=== PATIENT | female | born 1985 | race Caucasian/White ===

== ENCOUNTER 2019-01-31 13:37 | Emergency (ER) | payer MEDICAID ==
[~2019-01-31] VITALS: Ht 167.6 cm; Wt 86.2 kg
[2019-01-31] MEDS ORDERED: HYDROCODONE/APAP 5-325MG TABLET PO ONE (14:15)
[2019-01-31] MEDS ORDERED: ONDANSETRON ODT 4 MG TAB.RAPDIS SL ONE (14:15)
[2019-01-31] MEDS ORDERED: ALBUTEROL SULFATE 2.5 MG/3 ML NEBU NEB ONE (14:15)
[2019-01-31] MEDS ORDERED: ONDANSETRON ODT 4 MG TAB.RAPDIS ONE (14:18)
[2019-01-31] MEDS ORDERED: HYDROCODONE/APAP 5-325MG TABLET ONE (14:18)
[2019-01-31] MEDS ORDERED: ALBUTEROL SULFATE 2.5 MG/3 ML NEBU ONE (14:25)
[2019-01-31 15:22] VITALS: BP 133/88
== END 2019-01-31 15:25 | disposition home or self-care (01) ==
LOC: ER 13:37
DX: S49.91XA Unspecified injury of right shoulder and upper arm, initial encounter (principal); J45.909 Unspecified asthma, uncomplicated; W01.0XXA Fall on same level from slipping, tripping and stumbling without subsequent striking against object, initial encounter; Y93.89 Activity, other specified; Y92.89 Other specified places as the place of occurrence of the external cause; Y99.8 Other external cause status
CPT/HCPCS: 73030; A4663; Q0162

== ENCOUNTER 2019-10-18 23:48 | Emergency (ER) | payer MEDICAID ==
[~2019-10-18] VITALS: Ht 167.6 cm; Wt 85.3 kg
[2019-10-19] MEDS: IPRATROPIUM BROMIDE 0.5 MG/2.5 ML NEBU NEB ONE (00:15)
[2019-10-19] MEDS: ALBUTEROL SULFATE 2.5 MG/3 ML NEBU NEB ONE (00:15)
[2019-10-19] MEDS ORDERED: ALBUTEROL SULFATE 2.5 MG/3 ML NEBU ONE (00:18)
[2019-10-19] MEDS ORDERED: IPRATROPIUM BROMIDE 0.5 MG/2.5 ML NEBU ONE (00:19)
--- NOTE | 2019-10-19 00:43 | NUR ---
denies pain states feeling relief after breathing treatment Patient discharged to home in stable conditon. Written and verbal after care instructions given. Patient verbalizes understanding of instructions. all belongings w/ pt ambulatory w/ stable gait
[2019-10-19 00:45] VITALS: BP 105/71
== END 2019-10-19 00:45 | disposition home or self-care (01) ==
LOC: ER 23:55
DX: J45.901 Unspecified asthma with (acute) exacerbation (principal); Z60.2 Problems related to living alone
CPT/HCPCS: A4663; J3590

== ENCOUNTER 2019-10-22 18:55 | Emergency (ER) | payer MEDICAID ==
[~2019-10-22] VITALS: Ht 170.2 cm; Wt 85.3 kg
[2019-10-22] MEDS ORDERED: predniSONE 50 MG TABLET ONE (19:45)
[2019-10-22] MEDS ORDERED: ALBUTEROL SULFATE 2.5 MG/3 ML NEBU NEB ONE (19:45)
[2019-10-22] MEDS ORDERED: predniSONE 10 MG TABLET ONE (19:45)
[2019-10-22] MEDS ORDERED: IPRATROPIUM BROMIDE 0.5 MG/2.5 ML NEBU NEB ONE (19:45)
[2019-10-22] MEDS ORDERED: predniSONE 10 MG TABLET PO ONE (19:45)
--- NOTE | 2019-10-22 19:50 | NUR ---
PT REFUSED MED. STATED SHE WAS GIVEN THIS TX 2 DAYS AGO HERE IN ER; HAD NO EFFECT ON HER. AWARE.
[2019-10-22] MEDS ORDERED: ALBUTEROL SULFATE 2.5 MG/3 ML NEBU ONE (19:52)
[2019-10-22] MEDS ORDERED: IPRATROPIUM BROMIDE 0.5 MG/2.5 ML NEBU ONE (19:53)
--- NOTE | 2019-10-22 20:35 | NUR ---
Patient states "I feel alot better now."
[2019-10-22 20:42] VITALS: BP 115/59
--- NOTE | 2019-10-22 20:44 | NUR ---
Patient discharged to home in stable conditon. Written and verbal after care instructions given. Patient verbalizes understanding of instructions. Walked out of ER with no distress noted.
== END 2019-10-22 20:45 | disposition home or self-care (01) ==
LOC: ER 18:55
DX: R05 Cough (principal); J45.909 Unspecified asthma, uncomplicated; Z79.899 Other long term (current) drug therapy
CPT/HCPCS: 71045; 99283; J7512 ×2; A4663; J3590